=== PATIENT | male | born 1985 | race Caucasian/White ===

== ENCOUNTER → 2017-12-05 | Outpatient (CLI) | payer OTHER ==
--- NOTE | 2017-12-06 10:06 | RADIOLOGY REPORT (SQ) ---
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 TECHNIQUE: Blood glucose level was verified. Above dose of FDG was injected intravenously. 2-D seg mented attenuation correction images were obtained from the base of the skull to the midthighs. Nonc ontrast CT images were obtained for attenuation correction and fusion with emission images. CT image s were performed without oral or intravenous contrast and are not sensitive for parenchymal lesions. A series of overlapping emission PET images were obtained. Images reviewed and manipulated at [facility] work station by the radiologist. Images stored on PACS. LIMITATIONS: None. FINDINGS: HEAD AND NECK: No areas of abnormal metabolic activity in the soft tissues of the head and neck. CHEST: In the anterior mediastinum just ventral to the ascending aorta, minimal soft tissue is presen t, 3.5 x 2 cm in size with SUV of 2.0 (was 4 x 1.5 cm on PET-CT 04/10/2016 with SUV 3.5). There is a right axillary lymph node with adjacent surgical clips, 2.1 x 1.2 cm in size with activity below baseline at 0.75 (was 2.5 x 1.5 cm in size on PET-CT 04/10/2018, non metabolic). ABDOMEN AND PELVIS: No areas of abnormal metabolic activity in the abdomen or pelvis. Expected physi ologic activity is present in the genitourinary system and bowel. PROXIMAL LOWER EXTREMITIES: No areas of abnormal metabolic activity in the soft tissues of the lower extremities. BONES: No abnormal metabolic activity in the visualized skeleton. ADDITIONAL CT FINDINGS: Fatty liver. Gynecomastia. OTHER: Liver background activity 2.0 SUV. Blood pool background activity 1.4 SUV IMPRESSION: Minimal residual anterior mediastinal soft tissue with activity equal to liver SUV. TECHNICAL DOCUMENTATION: JOB ID: [id number] [employer]- All Rights Reserved Reading location - IP/workstation name: [email or web address]
== END ==
LOC: RAD 15:37
PROVIDERS: ATTEND Internal Medicine
DX: C81.08 Nodular lymphocyte predominant Hodgkin lymphoma, lymph nodes of multiple sites (principal)
CPT/HCPCS: 78815; A9552